=== PATIENT | male | born 1995 | race Asian ===

== ENCOUNTER 2024-02-21 12:56 | Emergency (ER) | payer OTHER, SELFPAY ==
[2024-02-21 13:08] VITALS: BP 175/100
--- NOTE | 2024-02-21 13:22 | ED.GENMED ---
ED Provider Triage
<Tess Barragan [employer] - Last Filed: 02/21/24 13:30>
-
Patient seen by provider in Triage?: Seen in Triage
Attestation: A medical screening examination has been initiated by a qualified medical provider. Based on the assessment performed at this time, it has been determined that an emergent medical condition may exist and the patient has been informed
that further medical evaluation and possible additional diagnostic testing may be needed.
HPI: 28-year-old male states he is here from urgent care or rectal bleeding and abdominal pain.
Bleeding intermittent and only with wiping after BMs. Started 2 days after finishing Augmentin x 10 days mid Octoverfor dog bite.
Had RUQ discomfort earlier today that has resolved, then had LUQ pain that is resolved. Denies f/c/dizziness, lightheaded. Denies SOB,CP.
Just got insurance and tried to get appt with GI for colonoscopy but all said he needs referral.
GENERAL: Alert , in no apparent distress
EYE: No visual abnormalities.
NECK: Trachea midline
ENT: No visible abnormalities.
LUNGS: No acute respiratory distress
NEUROLOGICAL: Alert and oriented
SKIN: Skin intact. No visible changes.
MUSCULOSKELETAL: Moving extremities normally
PSYCH: Normal and appropriate interaction.
This is a medical evaluation conducted in person to initiate diagnostic evaluation and provide initial therapeutics. Please see further documentation by the treating clinician.
History of Present Illness
<Tess Barragan, [employer] - Last Filed: 02/21/24 13:30>
General
Chief Complaint: Abdominal Pain
Time Seen by Provider: 02/21/24 16:35
<Nia Spence [employer] - Last Filed: 02/21/24 17:04>
General
Source: patient
Exam Limitations: none
Nursing documentation reviewed up to this point in time: agreed with
History of Present Illness
History of Present Illness:
Patient to ED with complaint of blood on tissue after BM. States he was placed on Augmentin in December after a dog bite. Symptoms started then. States he was evaluated at , c-diff test neg. Told bleeding was most like related to hemorrhoids.
States he took probiotics which helped but symptoms returned when he stopped. Advised by to come to ED.
Course
<Tess Barragan [employer] - Last Filed: 02/21/24 13:30>
Orders/Labs/Results
Orders:
Orders
02/21/24 13:12
CT Abd/pelvis W Iv Cont Urgent
Comment:
Reason For Exam: rectal blding after taking augmentin
02/21/24 13:18
Complete Blood Count/With Diff Urgent
Comprehensive Metabolic Panel Urgent
Abnormal Lab Results
02/21/24
13:18
RDW 11.4 L %
(11.5-14.5)
Immature Gran % 0.6 H %
(0-0.5)
02/21/24 13:18
02/21/24 13:18
Vital Signs
Initial and Last Documented VS:
Initial Vital Signs
Temp Pulse Resp BP Pulse Ox
98.4 F 87 16 175/100 98
02/21/24 13:08 02/21/24 13:08 02/21/24 13:08 02/21/24 13:08 02/21/24 13:08
Last Documented Vital Signs
Temp Pulse Resp BP Pulse Ox
98.4 F 98 18 140/100 96
02/21/24 13:08 02/21/24 15:55 02/21/24 15:55 02/21/24 15:55 02/21/24 15:55
<Nia Spence, [employer] - Last Filed: 02/21/24 17:04>
Orders/Labs/Results
Orders:
Orders
02/21/24 13:12
CT Abd/pelvis W Iv Cont Urgent
Comment:
Reason For Exam: rectal blding after taking augmentin
02/21/24 13:18
Complete Blood Count/With Diff Urgent
Comprehensive Metabolic Panel Urgent
Abnormal Lab Results
02/21/24
13:18
RDW 11.4 L %
(11.5-14.5)
Immature Gran % 0.6 H %
(0-0.5)
02/21/24 13:18
02/21/24 13:18
Vital Signs
Initial and Last Documented VS:
Initial Vital Signs
Temp Pulse Resp BP Pulse Ox
98.4 F 87 16 175/100 98
02/21/24 13:08 02/21/24 13:08 02/21/24 13:08 02/21/24 13:08 02/21/24 13:08
Last Documented Vital Signs
Temp Pulse Resp BP Pulse Ox
98.4 F 98 18 140/100 96
02/21/24 13:08 02/21/24 15:55 02/21/24 15:55 02/21/24 15:55 02/21/24 15:55
ED Attending Note
<Tess Barragan [employer] - Last Filed: 02/21/24 13:30>
-
Portions of this chart may have been created with voice recognition software.� Occasional wrong word or��sound alike� substitutions may have occurred due to the inherent limitations of voice recognition software.
Discharge Plan
Departure
Patient Disposition: Home (Routine Discharge)
Date of Disposition: 02/21/24
Time of Disposition: 16:57
Patient with high blood pressure during this ER visit?: No
Condition: Good
Covid-19: Not Applicable
Discharge Problem:
Abdominal pain
Instructions: Abdominal Pain
Referrals:
Lupe Villar MD [Active] - Call in 1-3 days for appt
NONE,* [Family Provider] -
Activity Restrictions/Additional Instructions:
Continue Probiotics daily until seen by lamps tester and inspector (Dr. Villar). As we discussed, follow up with urology (Dr. Rios) regarding the prostate cyst visualized on CT scan.
Interventions
Interventions:
*Risk Screen - Suicide Last Done: 02/21/24 13:08
*Neglect/Abuse Screening Last Done: 02/21/24 13:08
Discharge Date and Time
Print Language: [id number]
[2024-02-21 13:30] LABS: % Basophils 0.2 % (0-2); % Eosinophils 0.8 % (0-6); % Immature Granulocytes 0.6 % (0-0.5); % Lymphocytes 38.6 % (20.5-51.1); % Monocytes 7.6 % (1.7-9.3); % Neutrophils 52.2 % (42.2-75.2); Absolute Monocytes 0.4 10^3/uL (0.1-0.6); Absolute Neutrophils 2.7 10^3/uL (1.4-6.5); Hematocrit 45.6 % (39.0-52.0); Hemoglobin 16.1 g/dL (13.0-18.0); Mean Corp Hgb Conc. 35.3 g/dL (33.0-37.0); Mean Corpuscular Hgb 29.2 pg (27.0-31.0); Mean Corpuscular Volume 82.8 fL (80.0-94.0); Mean Platelet Volume 9.9 fL (7.4-10.4); Nucleated Red Blood Cells % 0 % (-); Platelet Count 257 10^3/uL (130-400); Red Blood Cell Count 5.51 10^6/uL (4.70-6.10); Red Cell Dist. Width 11.4 % (11.5-14.5); White Blood Cell Count 5.2 10^3/uL (4.8-10.8)
[2024-02-21 13:39] LABS: ALT (SGPT) 44 U/L (0-50); AST (SGOT) 31 U/L (17-59); Albumin 4.8 g/dl (3.5-5.0); Alkaline Phosphatase 51 U/L (38-126); Blood Urea Nitrogen 16 mg/dl (9-20); Calcium 9.5 mg/dl (8.4-10.2); Carbon Dioxide 29 mmol/L (22-30); Chloride 103 mmol/L (98-107); Glucose 97 mg/dl (70-99); Potassium 4.2 mmol/L (3.5-5.1); Sodium 140 mmol/L (135-145); Total Bilirubin 0.5 mg/dl (0.2-1.3); Total Protein 7.8 g/dl (6.3-8.2); eGFR > 60.00
[2024-02-21 15:55] VITALS: BP 140/100
== END 2024-02-21 17:25 | disposition home or self-care (01) ==
LOC: EMR 12:56
PROVIDERS: Registered Nurse; EMERGENCY PHYSICIAN Student in an Organized Health Care Education/Training Program
DX: R10.9 Unspecified abdominal pain (principal)
CPT/HCPCS: 99285; 74177; 80053; 85025; Q9967